=== PATIENT | female | born 1965 | race Caucasian/White ===

== ENCOUNTER 2020-09-04 09:40 | Emergency (ER) | payer MEDICARE, MEDICAID ==
[~2020-09-04] VITALS: Ht 167.6 cm; Wt 65.0 kg
[~2020-09-04 09:40] MED LIST: ALBU18HF INH; BREX3TAB PO; BUPR150T8 PO; CLON0.1T22 PO; NAPR220C2 PO; OXYB5TAB10 PO; SPIR25TA5 PO; TOPI100T24 PO; TOPI25TA32 PO; [UNRECOGNIZED DRUG - OTHER] PO
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
[2020-09-04] MEDS ORDERED: DIPH,PERTUSS(ACELL),TET VAC/PF 0.5 ML IM-VACC ONE ×2 (10:10→10:30)
--- NOTE | 2020-09-04 10:17 | NUR ---
SW NOTIFIED OF NEED FOR CONSULT FOR PT.
[2020-09-04 10:26] LABS: MICROSCOPIC NOT IND
--- NOTE | 2020-09-04 10:48 | NUR ---
SW AT BEDSIDE
--- NOTE | 2020-09-04 10:57 | NUR ---
[employer] AT BEDSIDE FOR POLICE REPORT.
[2020-09-04 11:09] VITALS: BP 118/78
--- NOTE | 2020-09-04 11:09 | NUR ---
PT RESTING ON GURNEY. NADN. PEREZ.
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
[2020-09-04] MEDS ORDERED: HYDROcodone/APAP 5/325 TABLET PO ONE (12:30)
== END 2020-09-04 12:15 | disposition left against medical advice (07) ==
LOC: ED 09:59
DX: S02.2XXA Fracture of nasal bones, initial encounter for closed fracture (principal); S16.1XXA Strain of muscle, fascia and tendon at neck level, initial encounter; S76.012A Strain of muscle, fascia and tendon of left hip, initial encounter; S76.011A Strain of muscle, fascia and tendon of right hip, initial encounter; S20.212A Contusion of left front wall of thorax, initial encounter; S09.90XA Unspecified injury of head, initial encounter; Z88.9 Allergy status to unspecified drugs, medicaments and biological substances; Z87.891 Personal history of nicotine dependence; Z90.710 Acquired absence of both cervix and uterus; Z79.899 Other long term (current) drug therapy; Y04.8XXA Assault by other bodily force, initial encounter; Y93.89 Activity, other specified; Y92.89 Other specified places as the place of occurrence of the external cause; Y99.8 Other external cause status
CPT/HCPCS: 70450; 70486; 72125; 72190; 81003; 90471; 90715; 99285